=== PATIENT | female | born 1990 | race Two or more races ===

== ENCOUNTER 2025-03-03 10:55 | Emergency (ER) | payer OTHER ==
[~2025-03-03] VITALS: Ht 165.1 cm; Wt 59.0 kg
== END 2025-03-03 14:40 | disposition home or self-care (01) ==
LOC: ER 10:56
DX: O26.891 Other specified pregnancy related conditions, first trimester (principal); Z3A.01 Less than 8 weeks gestation of pregnancy; R10.20 Pelvic and perineal pain unspecified side; Z88.8 Allergy status to other drugs, medicaments and biological substances; Z91.013 Allergy to seafood

== ENCOUNTER 2025-03-10 12:03 | Emergency (ER) | payer OTHER ==
[~2025-03-10] VITALS: Ht 162.6 cm; Wt 62.6 kg
[2025-03-10 13:18] VITALS: BP 111/72; O2SAT 99
[2025-03-10 15:27] LABS: BASO % 0.4 % (0.1-1.2); EOS # 0.23 (0.04-0.54); EOS % 1.7 % (0.7-7.0); LYMPH # 3.96 (1.18-3.74); LYMPH % 29.1 % (19.3-53.1); MEAN PLATELET VOLUME 9.10 fl (9.4-12.4); MONO # 1.17 (0.24-0.82); MONO % 8.6 % (4.7-12.5); NEUT # 8.12 (1.56-6.13); NEUT % 59.8 % (34.0-71.1); RED CELL DISTRIBUTION WIDTH 13.4 % (11.6-14.4)
[2025-03-10 15:56] LABS: INR 1.13
[2025-03-10 16:30] LABS: BUN CREA RATIO 17.0 (7.0-25.0); CREATININE SERUM 0.53 mg/dL (0.55-1.02); GFR 131.27; GLUCOSE FASTING 87.0 mg/dL (65-100); OSMOLALITY SERUM 279.0 MOSM/KG (275-295)
[2025-03-10 17:28] LABS: URINE APPEARANCE Clear; URINE BILIRRUBIN Negative (NEGATIVE); URINE BLOOD Negative; URINE COLOR Yellow; URINE GLUCOSE Negative (NEGATIVE); URINE KETONE Negative (NEGATIVE); URINE LEUKOCYTE Negative; URINE NITRATE Negative; URINE PROTEIN Negative (NEGATIVE); URINE UROBILINOGEN 1.0 E.U./dl
[2025-03-10 17:30] LABS: URINE BACTERIA 267.6 uL (0.0-1933); URINE EPITHELIAL CELLS 16.8 uL (0.0-38.8); URINE RBC 9.0 uL (0.0-20.8); URINE WBC 12.7 uL (0.0-23.2)
[2025-03-10 17:43] LABS: URINE CAST 0.14 uL (0.0-1.40)
[2025-03-10] MEDS ORDERED: ACETAMINOPHEN 500 MG GEL..CAP PO ONE (20:04)
== END 2025-03-10 20:07 | disposition home or self-care (01) ==
LOC: ER 12:04
PROVIDERS: General Practice
DX: O20.8 Other hemorrhage in early pregnancy (principal); Z88.6 Allergy status to analgesic agent; Z91.013 Allergy to seafood; Z3A.01 Less than 8 weeks gestation of pregnancy